=== PATIENT | female | born 1995 | race Hispanic/Latino ===

== ENCOUNTER 2017-05-28 16:40 | Emergency (ER) | payer BC ==
[2017-05-28 16:52] VITALS: RESP 18; TEMP 98.2; O2SAT 100
[2017-05-28] MEDS ORDERED: Sodium Chloride 0.9% 1,000 ML IV STA (17:06)
--- NOTE | 2017-05-28 17:14 | ED PDOC ---
HPI: Allergic Reaction Time Seen by Provider: 05/28/17 16:51 Chief Complaint (Nursing): Allergic Reaction Chief Complaint (Provider): Rash History Per: Patient History/Exam Limitations: no limitations Onset/Duration Of Symptoms: Hrs Current Symptoms Are (Timing): Still Present Home/EMS Treatment: Benadryl Additional Complaint(s): Herminia Chicas, a 21 year old female, presents to the ED with a rash. The patient states that while playing on the soccer field she developed a rash. She reports that at 1230 she took 25mg of Benadryl and 400mg of ibuprofen then at 1400 she took 25mg more of benadryl. The patient states that around 1500 she returned to the field and 10 minutes into playing she began to feel tingling in both her legs and around her lips and also began to feel lightheaded. Denies syncope, focal weakness. Rash has since resolved upon arrival to ED. Past Medical History Reviewed: Historical Data, Nursing Documentation, Vital Signs Vital Signs: Last Vital Signs Temp 98.2 F 05/28/17 16:44 Pulse 68 05/28/17 16:44 Resp 18 05/28/17 16:44 BP 149/74 05/28/17 16:44 Pulse Ox 100 05/28/17 16:44 - Medical History PMH: Pneumonia Denies: Diabetes, Hepatitis, HIV, HTN, Seizures, Sexually Transmitted Disease - Surgical History Surgical History: Appendectomy - Family History Family History: States: Unknown Family Hx - Home Medications Home Medications: Ambulatory Orders Medication Instructions Recorded Mometasone Furoate [Asmanex Hfa] 1 inh INH DAILY 05/28/17 - Allergies Allergies/Adverse Reactions: Allergies Allergy/AdvReac Type Severity Reaction Status Date / Time No Known Allergies Allergy Verified 05/28/17 17:43 Review of Systems ROS Statement: Except As Marked, All Systems Reviewed And Found Negative Neurological: Positive for: Other (Denies syncope; Denies focal weakness.). Negative for: Headache Physical Exam - Reviewed Nursing Documentation Reviewed: Yes Vital Signs Reviewed: Yes - Physical Exam Appears: Positive for: Non-toxic, No Acute Distress Head Exam: Positive for: ATRAUMATIC, NORMAL INSPECTION, NORMOCEPHALIC Skin: Positive for: Normal Color, Warm, Dry Eye Exam: Positive for: Normal appearance, EOMI, PERRL ENT: Positive for: Normal ENT Inspection. Negative for: Nasal Congestion, Tonsillar Exudate Neck: Positive for: Normal, Painless ROM, Supple Cardiovascular/Chest: Positive for: Regular Rate, Rhythm, Chest Non Tender. Negative for: Tachycardia Respiratory: Positive for: Normal Breath Sounds. Negative for: Rales, Rhonchi, Wheezing, Respiratory Distress Gastrointestinal/Abdominal: Positive for: Normal Exam, Soft. Negative for: Tenderness, Mass, Guarding, Rebound Back: Positive for: Normal Inspection. Negative for: L CVA Tenderness, R CVA Tenderness Extremity: Positive for: Normal ROM. Negative for: Tenderness, Pedal Edema, Deformity, Swelling Neurologic/Psych: Positive for: Alert, media arts professor II-XII (Cranial nerves intact), Oriented, Cerebellar Tests (Cerebellar tests normal). Negative for: Motor/ Sensory Deficits, Gait, Facial Droop - Laboratory Results Result Diagrams: 05/28/17 17:15 05/28/17 17:15 - ECG Interpretation Of ECG: Sinus krzysztof @ 54, no ST-T changes. O2 Sat by Pulse Oximetry: 100 (RA) Pulse Ox Interpretation: Normal - Progress ED Course And Treament: 1651 Initial Impression: 21 y/o female presenting with paresthesias Initial Plan: * EKG * Comp Metabollic Panel * Magnesium * Upreg * Udip * EKG-ED [EDNURTX] * CBC * NS 1000mls IV 1000mls/hr * [id number]-[id number] * Urinalysis * Reevaluation 1900 Patient is now feeling much better. As per mother, resting heart rate is in the 40's. Patient will be discharged home with a copy of labs to give to PMD. Scribe Attestation Documented by Samara Pineda acting as a scribe for Angela Quinonez MD. Provider Attestation All medical record entries made by the Scribe were at my direction and personally dictated by me. I have reviewed the chart and agree that the record accurately reflects my personal performance of the history, physical exam, medical decision making, and the department course for this patient. I have also personally directed, reviewed, and agree with the discharge instructions and disposition. Disposition - Clinical Impression Clinical Impression: Bilateral leg paresthesia, Medication side effect - Patient ED Disposition Is Patient to be Admitted: No Counseled Patient/Family Regarding: Studies Performed, Diagnosis, Need For Followup - Disposition Disposition: Routine/Home Disposition Time: 19:00 Condition: IMPROVED Additional Instructions: FOLLOW-UP WITH PMD WITHIN 2 DAYS FOR REEVALUATION. Instructions: Diphenhydramine (By mouth), Paresthesia (ED) Forms: [employer] (Setswana)
[2017-05-28 17:22] LABS: BASO # 0.1 K/uL (0.0-0.2); BASO % 0.6 % (0.0-2.0); EOS % 0.2 % (0.0-4.0); HEMATOCRIT 37.6 % (34.0-47.0); LYMPH # 1.6 K/uL (1.0-4.3); LYMPH % 15.8 % (20.0-40.0); MEAN CELL VOLUME 89.2 fl (81.0-99.0); MEAN CORPUSCULAR HEMOGLOBIN 29.3 pg (27.0-31.0); MEAN CORPUSCULAR HGB CONC 32.9 g/dL (33.0-37.0); MEAN PLATELET VOLUME 7.7 fl (7.2-11.7); MONO # 0.5 K/uL (0.0-0.8); MONO % 5.1 % (0.0-10.0); NEUT # 7.8 K/uL (1.8-7.0); NEUT % 78.3 % (50.0-75.0); NRBC % 0.1 % (0.0-0.0); WHITE BLOOD COUNT 9.9 K/uL (4.8-10.8)
[2017-05-28 17:35] LABS: ALB/GLOB RATIO 1.4 (1.0-2.1); ALKALINE PHOSPHATASE 65 U/L (38-126); ALT/SGPT 27 U/L (9-52); AST/SGOT 23 U/L (14-36); BILIRUBIN,TOTAL 0.4 mg/dl (0.2-1.3); BLOOD UREA NITROGEN 16 mg/dl (7-17); CARBON DIOXIDE 23 mmol/L (22-30); CHLORIDE 104 mmol/L (98-107); GFR AFRICAN-AMERICAN > 60; GLUCOSE,RANDOM 89 mg/dL (65-105); MAGNESIUM 1.9 MG/DL (1.6-2.3); POTASSIUM 4.2 MMOL/L (3.6-5.0); SODIUM 140 mmol/l (132-148); TOTAL PROTEIN 7.7 G/DL (6.3-8.2)
[2017-05-28 17:36] LABS: RBC URINE 4 /hpf (0-3); URINE BACTERIA RARE (<OCC); URINE BILIRUBIN NEGATIVE (NEGATIVE); URINE BLOOD NEGATIVE (NEGATIVE); URINE COLOR YELLOW (YELLOW); URINE GLUCOSE (UA) NEG (Normal); URINE KETONE TRACE mg/dL (NEGATIVE); URINE LEUKOCYTE ESTERASE NEG Leu/uL (Negative); URINE PROTEIN 30 mg/dL (NEGATIVE); URINE UROBILINOGEN 0.2-1.0 mg/dL (0.2-1.0); WBC URINE 2 /hpf (0-5)
[2017-05-28 19:03] VITALS: BP 135/82; PULSE 69
== END 2017-05-28 19:12 | disposition home or self-care (01) ==
LOC: H.ER 16:40
DX: R20.0 Anesthesia of skin (principal); T50.901A Poisoning by unspecified drugs, medicaments and biological substances, accidental (unintentional), initial encounter
CPT/HCPCS: 80053; 81003; 81025; 82948; 83735; 85025; 96360; 99284; J7040